=== PATIENT | female | born 1990 | race Caucasian/White ===

== ENCOUNTER 2017-04-09 16:18 | Outpatient (CLI) | payer MEDICAID ==
[~2017-04-09] VITALS: Ht 162.6 cm; Wt 109.0 kg
[2017-04-09 16:44] VITALS: BP 101/64
[2017-04-09 17:14] LABS: DAU SCREEN DISCLAIMER
== END 2017-04-09 18:40 | disposition home or self-care (01) ==
LOC: LDOP 16:18
PROVIDERS: ATTEND Obstetrics & Gynecology
DX: O36.8130 Decreased fetal movements, third trimester, not applicable or unspecified (principal); Z3A.34 34 weeks gestation of pregnancy
CPT/HCPCS: 59025; 80307; 99201; G0463

== ENCOUNTER 2017-05-10 05:39 | Inpatient (IN) | payer MEDICAID ==
[~2017-05-10] VITALS: Ht 162.6 cm; Wt 113.6 kg
[2017-05-10] MEDS ORDERED: LACTATED RINGERS 1,000 ML IV SCH ×2 (05:40→05:45)
[2017-05-10] MEDS ORDERED: OXYTOCIN 30U/ 0.9% NaCL 500ML 500 ML IV SCH (05:40)
[2017-05-10 05:59] VITALS: BP 126/81
[2017-05-10] MEDS ORDERED: OXYTOCIN 30U/ 0.9% NaCL 500ML 500 ML ONE (06:00)
[2017-05-10] MEDS ORDERED: METOCLOPRAMIDE 5 MG/ML, 2ML ONE (06:00)
[2017-05-10] MEDS ORDERED: LACTATED RINGERS 1,000 ML IVBOLUS ONE (06:00)
[2017-05-10] MEDS ORDERED: SODIUM CITRATE/CITRIC ACID 30 ML UDC PO ONE (06:00)
[2017-05-10] MEDS ORDERED: SODIUM CITRATE/CITRIC ACID 30 ML UDC ONE (06:00)
[2017-05-10] MEDS ORDERED: METOCLOPRAMIDE 5 MG/ML, 2ML IV ONE (06:00)
[2017-05-10 06:12] LABS: HEMATOCRIT 41.6 % (34.6-47.8); HEMOGLOBIN 13.7 g/dL (11.7-16.4); WHITE BLOOD COUNT 11.8 x10^3/uL (3.4-10)
[2017-05-10] MEDS ORDERED: FENTANYL PF 100 MCG/2ML ONE ×2 (07:18→08:09)
[2017-05-10] MEDS ORDERED: CEFAZOLIN 1,000 MG ONE (08:09)
[2017-05-10] MEDS ORDERED: KETOROLAC 30 MG/1 ML ONE (08:09)
[2017-05-10] MEDS ORDERED: LIDOCAINE 1%, 20ML ONE (08:09)
[2017-05-10] MEDS ORDERED: OXYTOCIN 10 UNITS/ML, 1ML ONE (08:09)
[2017-05-10] MEDS: LACTATED RINGERS 1,000 ML IV SCH ×5 (09:22→21:38)
[2017-05-10] MEDS ORDERED: MISOPROSTOL 200 MCG TABLET SL PRN (09:30)
[2017-05-10] MEDS ORDERED: FENTANYL PF 100 MCG/2ML IV PRN (09:30)
[2017-05-10] MEDS ORDERED: ONDANSETRON 2MG/ML, 2ML IV PRN (09:30)
[2017-05-10] MEDS ORDERED: ONDANSETRON 2MG/ML, 2ML IVPush PRN (09:30)
[2017-05-10] MEDS ORDERED: morphine SULFATE 10 MG/ML, 1ML IV PRN (09:30)
[2017-05-10] MEDS ORDERED: OXYcodone 5 MG/5 ML ORAL.SOL UDC PO PRN (09:30)
[2017-05-10] MEDS ORDERED: MEPERIDINE/PF 25MG/0.5ML IVPush PRN (09:30)
[2017-05-10] MEDS ORDERED: METHYLERGONOVINE 0.2 MG/ML IM PRN (09:30)
[2017-05-10] MEDS ORDERED: PROMETHAZINE 25 MG/ML, 1ML IV PRN (09:30)
[2017-05-10] MEDS ORDERED: OXYcodone/APAP 5/325MG TABLET PO PRN (09:30)
[2017-05-10] MEDS ORDERED: PREN1TAB60 PO (10:10)
[2017-05-10] MEDS: OXYTOCIN 30U/ 0.9% NaCL 500ML 500 ML IV SCH ×3 (10:23→21:39)
[2017-05-10 11:10] VITALS: BP 111/71
[2017-05-10] MEDS: SIMETHICONE 80 MG CHEW TAB PO SCH ×3 (12:19→20:26)
[2017-05-10] MEDS: IBUPROFEN 800 MG TABLET PO SCH ×2 (12:19→20:26)
[2017-05-10 16:10] VITALS: BP 111/85
[2017-05-10] MEDS: OXYcodone IR 5MG TABLET PO PRN ×2 (16:10→20:26)
[2017-05-10 16:53] LABS: HEMATOCRIT 39.2 % (34.6-47.8); HEMOGLOBIN 12.8 g/dL (11.7-16.4); WHITE BLOOD COUNT 13.6 x10^3/uL (3.4-10)
[2017-05-10 20:00] VITALS: BP 105/65
[2017-05-10] MEDS: DOCUSATE 100 MG CAPSULE PO PRN (20:26)
[2017-05-11 00:01] VITALS: BP 113/73
[2017-05-11] MEDS: OXYcodone IR 5MG TABLET PO PRN ×6 (00:15→21:06)
[2017-05-11] MEDS: LACTATED RINGERS 1,000 ML IV SCH ×2 (01:22→01:50)
[2017-05-11 04:15] VITALS: BP 122/76
[2017-05-11] MEDS: SIMETHICONE 80 MG CHEW TAB PO SCH ×4 (04:27→21:06)
[2017-05-11] MEDS: IBUPROFEN 800 MG TABLET PO SCH ×3 (04:27→20:30)
[2017-05-11 07:30] VITALS: BP 112/66
[2017-05-11] MEDS: PRENATAL VIT/IRON/FA 1 EACH TABLET PO SCH (08:49)
[2017-05-11] MEDS: DOCUSATE 100 MG CAPSULE PO PRN ×2 (08:49→20:30)
[2017-05-11 21:00] VITALS: BP 110/71
[2017-05-12] MEDS: LACTATED RINGERS 1,000 ML IV SCH ×2 (01:22→06:21)
[2017-05-12] MEDS: OXYTOCIN 30U/ 0.9% NaCL 500ML 500 ML IV SCH ×2 (01:22→06:22)
[2017-05-12] MEDS: OXYcodone IR 5MG TABLET PO PRN ×4 (01:44→16:52)
[2017-05-12] MEDS: IBUPROFEN 800 MG TABLET PO SCH ×2 (04:42→11:54)
[2017-05-12] MEDS: SIMETHICONE 80 MG CHEW TAB PO SCH ×3 (04:42→16:05)
[2017-05-12 08:00] VITALS: BP 115/68
[2017-05-12] MEDS: DOCUSATE 100 MG CAPSULE PO PRN (08:19)
[2017-05-12] MEDS: PRENATAL VIT/IRON/FA 1 EACH TABLET PO SCH (08:19)
[2017-05-12] MEDS ORDERED: OXYC-302 PO (12:35)
[2017-05-12] MEDS ORDERED: IBUP-1223 PO (12:36)
== END 2017-05-12 18:40 | disposition home or self-care (01) | DRG 765 ==
LOC: LDIP 05:39 → 2NW 11:12
PROVIDERS: ADMIT Student in an Organized Health Care Education/Training Program; ATTEND Student in an Organized Health Care Education/Training Program
PROC: 10D00Z1 Extraction of Products of Conception, Low, Open Approach (ICD-10-PCS; principal; 2017-05-10)
DX: O32.8XX0 Maternal care for other malpresentation of fetus, not applicable or unspecified (principal); O99.354 Diseases of the nervous system complicating childbirth; O99.344 Other mental disorders complicating childbirth; F32.9 Major depressive disorder, single episode, unspecified; F41.9 Anxiety disorder, unspecified; G43.909 Migraine, unspecified, not intractable, without status migrainosus; Z80.8 Family history of malignant neoplasm of other organs or systems; Z37.0 Single live birth; Z3A.40 40 weeks gestation of pregnancy; Z81.8 Family history of other mental and behavioral disorders; Z91.5 Personal history of self-harm
CPT/HCPCS: 36415; 85025; 86850; 86900; J0690; J1885; J3010; J3490; J2590; J2765; J7120

== ENCOUNTER 2017-08-04 14:40 | Emergency (ER) | payer MEDICAID ==
[~2017-08-04] VITALS: Ht 162.6 cm; Wt 107.7 kg
[~2017-08-04 14:40] MED LIST: IBUP-1223 PO; OXYC-302 PO; PREN1TAB60 PO
[2017-08-04] MEDS ORDERED: ONDANSETRON 2MG/ML, 2ML ONE (15:24)
[2017-08-04] MEDS ORDERED: FAMOTIDINE 20 MG/2 ML ONE (15:24)
[2017-08-04] MEDS ORDERED: FAMOTIDINE 20 MG/2 ML IVP ONE (15:30)
[2017-08-04] MEDS ORDERED: ONDANSETRON 2MG/ML, 2ML IVPush ONE (15:30)
[2017-08-04] MEDS ORDERED: SODIUM CHLORIDE FLUSH 10ML SYR IVF ONE (15:30)
[2017-08-04] MEDS ORDERED: SODIUM CHLORIDE 0.9% 1,000ML IVBOLUS ONE (15:30)
[2017-08-04 15:58] LABS: HEMATOCRIT 42.5 % (34.6-47.8); HEMOGLOBIN 14.3 g/dL (11.7-16.4); WHITE BLOOD COUNT 8.7 x10^3/uL (3.4-10)
[2017-08-04 16:08] LABS: BLOOD UREA NITROGEN 6 mg/dL (7-18)
[2017-08-04 16:14] LABS: ASPARTATE AMINO TRANSFERASE 17 U/L (15-37)
[2017-08-04 17:32] VITALS: BP 119/67
== END 2017-08-04 18:00 | disposition home or self-care (01) ==
LOC: ED 14:54
DX: R19.7 Diarrhea, unspecified (principal); R11.2 Nausea with vomiting, unspecified
CPT/HCPCS: 36415; 80053; 81001; 83690; 84703; 85025; 87077; 87086; 96361; 96374; 96375; 99284; J2405; J7030; S0028

== ENCOUNTER 2018-10-30 11:16 | Emergency (ER) | payer MEDICAID, OTHER ==
[~2018-10-30] VITALS: Ht 162.6 cm; Wt 102.3 kg
[2018-10-30 11:21] VITALS: BP 138/91
--- NOTE | 2018-10-30 12:06 | NUR ---
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
--- NOTE | 2018-10-30 12:19 | NUR ---
ASSUMED CARE. PT STATES THAT SHE HAS LEFT CHEST WALL PAIN THAT DEVELOPED LAST NIGHT. IT WORSENS WITH INSPIRATION. PAIN COMES AND GOES, NOT RADIATING.PLACED ON MONITOR
[2018-10-30 12:21] LABS: BASOPHILS # (AUTO) 0.02 x10^3/uL (0-0.1); BASOPHILS % (AUTO) 0 % (0-1); EOSINOPHILS # (AUTO) 0.04 x10^3/uL (0-0.4); EOSINOPHILS % (AUTO) 1 % (1-7); LYMPHOCYTES # (AUTO) 2.89 x10^3/uL (1-3.4); LYMPHOCYTES % (AUTO) 34 % (22-44); MD NO; MEAN CORPUSCULAR HEMOGLOBIN 29.8 pg (27.0-34.8); MEAN CORPUSCULAR VOLUME 87.7 fL (80-100); MEAN PLATELET VOLUME 8.2 fL (7.4-10.4); MONOCYTES # (AUTO) 0.64 x10^3/uL (0.2-0.8); MONOCYTES % (AUTO) 7 % (2-9); NEUTROPHILS # (AUTO) 5.01 x10^3/uL (1.8-6.8); NEUTROPHILS % (AUTO) 58 % (42-75); PLATELET COUNT 259 x10^3/uL (130-400); RED BLOOD COUNT 4.97 x10^6/uL (3.82-5.3); RED CELL DISTRIBUTION WIDTH 13.1 % (9.6-15.2)
[2018-10-30 12:24] LABS: ALBUMIN 3.8 g/dL (3.4-5.0); ANION GAP 7 mmol/L (5-15); CALCIUM 8.5 mg/dL (8.5-10.1); CHLORIDE 104 mmol/L (98-107); CREATININE 0.73 mg/dL (0.55-1.02)
[2018-10-30 12:29] LABS: TROPONIN I < 0.015 ng/mL (0.000-0.045)
== END 2018-10-30 13:45 | disposition home or self-care (01) ==
LOC: ED 13:42
DX: R07.89 Other chest pain (principal)
CPT/HCPCS: 36415; 71045; 80048; 82040; 84484; 85025; 85379; 93005; 99284